=== PATIENT | male | born 1975 | race Caucasian/White ===

== ENCOUNTER 2016-09-03 10:40 | Emergency (ER) | payer MEDICAID ==
[~2016-09-03] VITALS: Wt 105.0 kg
[2016-09-03] MEDS ORDERED: HYDROCODONE/APAP (10/325) TAB PO ONE (12:30)
[2016-09-03] MEDS ORDERED: CYCL-319 PO (13:34)
[2016-09-03] MEDS ORDERED: IBUP-1542 PO (13:34)
[2016-09-03 13:54] VITALS: BP 140/85; PULSE 82; RESP 22; TEMP 98.2
--- NOTE | 2016-09-03 15:01 | ERD ---
ER Documentation Chief Complaint Date/Time DATE: 09/03/16 TIME: 14:59 Chief Complaint LOWER BACK PAIN X 3 DAYS HPI 40-year-old male with no significant past medical history presents the ED complaining of back pain that started 1 week ago. States that it feels like his muscles are spasming and feels painful when he moves from left to right. Reports that he has been taking ketorolac 30 mg with slight improvement of his pain. Denies any heavy lifting or trauma. Denies any flank pain, dysuria, urgency, frequency, abdominal pain, nausea, vomiting, diarrhea, chest pain, shortness of breath. ROS All systems reviewed and are negative except as per history of present illness. Medications Home Meds Active Scripts Ibuprofen* (Motrin*) 600 Mg Tab, 600 MG PO Q6, #30 TAB Prov:HANH GALDAMEZ PA-C 09/03/16 Cyclobenzaprine Hcl* (Cyclobenzaprine Hcl*) 10 Mg Tablet, 10 MG PO TID, #15 TAB Prov:HANH GALDAMEZ PA-C 09/03/16 PMhx/Soc Medical and Surgical Hx: pt denies Medical Hx, pt denies Surgical Hx History of Surgery: No Anesthesia Reaction: No Hx Alcohol Use: No Hx Substance Use: No Hx Tobacco Use: No Smoking Status: Never smoker Physical Exam Vitals Vital Signs Date Time Temp Pulse Resp B/P Pulse Ox O2 Delivery O2 Flow Rate FiO2 09/03/16 13:54 98.2 82 22 140/85 99 Room Air 09/03/16 10:45 98.0 71 18 141/92 99 Physical Exam Const: Gra-rdy-zovhuqbxy, well-nourished. In no acute distress. Head: Atraumatic, normocephalic Eyes: Normal Conjunctiva without injection. No purulent discharge. ENT: Normal external ear, nose. Moist oropharynx without tonsillar exudates. Non -erythematous pharynx. Uvula midline. No drooling. No trismus. Neck: No cervical midline tenderness. Full range of motion. No meningismus. No cervical lymphadenopathy. No JVD. Resp: Clear to auscultation bilaterally. No wheezing, rhonchi, rales, or crackles. No accessory muscle use. No retractions. Cardio: Regular rate and rhythm. No murmurs, rubs or gallops. Abd: Soft, nontender, non distended. Normal bowel sounds. No palpable masses. No rebound tenderness. No guarding. Negative McBurney's point. Negative psoas sign. Negative obturator sign. Skin: No petechiae or rashes Back: No midline tenderness. Tenderness to palpation of the left lumbar muscles. Muscle spasms noted. No CVA tenderness. Ext: No cyanosis, or edema. Neur: Awake and alert. Normal gait. Normal coordination. Psych: Normal Mood and Affect Results 24 hrs Current Medications Medications (Trade) Dose Ordered Sig/Wellington Route PRN Reason Start Time Stop Time Status Last Admin Dose Admin Acetaminophen/ Hydrocodone Bitart (Malcolm ()) 1 tab ONCE ONCE PO 09/03/16 12:30 09/03/16 12:31 DC 09/03/16 13:39 Procedures/MDM This is a 40-year-old male with no significant past medical history presents the ED complaining of back pain that started intermittently 1 week ago and has worsened 3 days ago. Patient is afebrile and nontoxic-appearing. Patient has normal vital signs. Patient's pain is likely due to musculoskeletal pain. Patient is ambulating here in the ED without difficulty. Denies saddle anesthesia, numbness or tingling, urine or bowel incontinence, weakness. Low suspicion for cauda equina syndrome, cord compression, nephrolithiasis, aortic aneurysm, aortic dissection, epidural abscess, spinal hematoma, malignancy, pyelonephritis, degenerative disc disease, spinal stenosis, or other emergent conditions. Discharge medications: Ibuprofen, Flexeril Follow up with primary care physician in 1-2 days. Instructed patient to return to the ED sooner for any worsening symptoms. Patient's questions were answered. Patient understood and agreed with discharge plan. Patient discharged stable. Departure Diagnosis: Primary Impression: Back pain Back pain location: back pain in unspecified location Chronicity: acute Back pain laterality: left Qualified Code: M54.9 - Acute left-sided back pain , unspecified back location Condition: Stable Patient Instructions: Back Pain (Acute Or Chronic) Referrals: [facility] Usted se mccann hecho un examen mdico de control que le indica que no est en bertha condicin que requiera tratamiento urgente en el Departamento de Emergencia. Un estudio ms profundo y el tratamiento de snyder condicin pueden esperar sin ningn riesgo hasta que usted sea atendida/o en el consultorio de snyder mdico o bertha cl ernesto. Es responsabilidad suya arreglar bertha anand para el seguimiento del conner. MANEJO DE CONDICIONES NO URGENTES EN EL FUTURO 1) Si usted tiene un mdico de atencin primaria: Usted debera llamar a snyder mdico de atencin primaria antes de venir al departamento de emergencia. Despus de las horas de consultorio, snyder doctor o snyder asociado/a est disponible por telfono. El mdico o enfermero de ever en el servicio telefnico puede asesorarle por johnathan medio para atender el problema, o conner contrario se puede programar bertha anand. 2) Si usted no tiene un mdico de atencin primaria: Llame al mdico o clnica de referencia que aparece abajo estephanie las horas de consultorio para hacer bertha anand para que le vean. CLINICAS: [facility] [phone] [address] [facility] [phone] [address] [facility]. [facility] [phone] [address] [facility]. [facility] [phone] [address] [facility] [place] [id number] [phone] [facility]. [phone] [facility] () Usted se mccann hecho un examen mdico de control que le indica que no est en bertha condicin que requiera tratamiento urgente en el Departamento de Emergencia. Un estudio ms profundo y el tratamiento de snyder condicin pueden esperar sin ningn riesgo hasta que usted sea atendida/o en el consultorio de snyder mdico o bertha cl ernesto. Es responsabilidad suya arreglar bertha anand para el seguimiento del conner. MANEJO DE CONDICIONES NO URGENTES EN EL FUTURO 1) Si usted tiene un mdico de atencin primaria: Usted debera llamar a snyder mdico de atencin primaria antes de venir al departamento de emergencia. Despus de las horas de consultorio, snyder doctor o snyder asociado/a est disponible por telfono. El mdico o enfermero de ever en el servicio telefnico puede asesorarle por johnathan medio para atender el problema, o conner contrario se puede programar bertha anand. 2) Si usted no tiene un mdico de atencin primaria: Llame al mdico o condado institucions de referencia que aparece abajo estephanie las horas de consultorio para hacer bertha anand para que le vean. SI USTED NO PUEDE PAGAR PARA SEDRICK UN MEDICO puede ir a: [facility] [address] [place] [address] [facility] [address] [place] [address] [facility] [address] [place] [address] [facility] [address] [place], [place] [id number] Additional Instructions: Llame al doctor MAANA y nate bertha ANAND PARA DENTRO DE 1-2 CAI.Dgale a la secretaria que nosotros le instruimos hacer esta anand.Avise o llame si snyder condicin se empeora antes de la anand. Regresa aqui si peor o no mejor. HANH GALDAMEZ PA-C Sep 03, 2016 15:01
== END 2016-09-03 13:54 | disposition home or self-care (01) ==
LOC: FTE 10:40
DX: M54.5 Low back pain (principal)
CPT/HCPCS: Z7502; Z7610; 99283

== ENCOUNTER 2018-11-13 10:21 | Emergency (ER) | payer MEDICAID ==
[~2018-11-13] VITALS: Ht 172.7 cm; Wt 98.2 kg
[~2018-11-13 10:21] MED LIST: CYCL10TA7 PO; IBUP-1542 PO
[2018-11-13 10:24] VITALS: BP 136/77; PULSE 73; RESP 20; Ht 172.7 cm; Wt 98.2 kg
[2018-11-13] MEDS ORDERED: KETOROLAC 30 MG INJ IM STA (10:38)
--- NOTE | 2018-11-13 10:41 | ERD ---
ER Documentation Chief Complaint Chief Complaint Complains of severe back pain x 2 days HPI This is a 42-year-old male who states he has had left-sided mid and lower back pain for 2 weeks. States the pain comes and goes. He has no dysuria hematuria or frequency. No fever. But no nausea or vomiting. Pain is worse with movement. He has not taken any medication for his pain. ROS All systems reviewed and are negative except as per history of present illness. Medications Home Meds Active Scripts Ibuprofen* (Motrin*) 600 Mg Tab, 600 MG PO Q6, #30 TAB Prov:HANH GALDAMEZ PA-C 09/03/16 Cyclobenzaprine Hcl* (Cyclobenzaprine Hcl*) 10 Mg Tablet, 10 MG PO TID, #15 TAB Prov:HANH GALDAMEZ PA-C 09/03/16 Allergies Allergies: Coded Allergies: No Known Allergy (Unverified , 11/13/18) PMhx/Soc History of Surgery: No Anesthesia Reaction: No Hx Alcohol Use: No Hx Substance Use: No Hx Tobacco Use: No FmHx Family History: No diabetes Physical Exam Vitals Vital Signs Date Temp Pulse Resp B/P (MAP) Pulse Ox O2 O2 Flow FiO2 Time Delivery Rate 11/13/18 98.4 73 20 136/77 99 10:24 (96) Physical Exam Const: No acute distress Head: Atraumatic Eyes: Normal Conjunctiva ENT: Normal External Ears, Nose and Mouth. Neck: Full range of motion. No meningismus. Resp: Clear to auscultation bilaterally Cardio: Regular rate and rhythm, no murmurs Back Exam: Compartments: Soft Motor: Normal flexion and extension of bilateral hip/knee/ankle/foot Sensation: Intact to light touch throughout Bones: No midline TTP Results 24 hrs Current Medications Medications Dose Sig/Wellington Start Time Status Last (Trade) Ordered Route PRN Stop Time Admin Dose Reason Admin Ketorolac 30 mg ONCE STAT 11/13/18 DC Tromethamine IM 10:38 (Toradol) 11/13/18 10:39 Diazepam 5 mg ONCE ONCE 11/13/18 (Valium) PO 11:00 11/13/18 11:01 Procedures/MDM The differential diagnosis includes but is not limited to muscle strain, ligamen t strain, contusion, arthritis, discogenetic disease, non-musculoskeletal, cauda equina syndrome, cord compression, abscess and others. Patient is ambulatory neurovascular intact. No saddle anesthesia. No bowel or bladder incontinence. No trauma. No indication for imaging at this time. Toradol and Valium given here prescription for ibuprofen and Flexeril provided. Patient counseled regarding my diagnostic impression and care plan. Prior to discharge all questions answered. Pt agrees with treatment plan and understands strict return precautions. Pt is instructed to follow up with primary care provider within 24- 48 hours. Precautionary instructions provided including instructions to return to the ER if not improving or for any worsening or changing symptoms or concerns. Departure Diagnosis: Primary Impression: Back pain Condition: Stable LEIF WYATT PA-C November 13, 2018 10:41
[2018-11-13] MEDS ORDERED: IBUP800T48 PO (10:44)
[2018-11-13] MEDS ORDERED: CYCL10TA7 PO (10:44)
[2018-11-13] MEDS ORDERED: DIAZEPAM 5 MG TAB PO ONE (11:00)
== END 2018-11-13 12:16 | disposition home or self-care (01) ==
LOC: FTE 10:21
DX: M54.5 Low back pain (principal)
CPT/HCPCS: 96372; J1885; Z7502; Z7610